=== PATIENT | female | born 1965 | race Caucasian/White ===

== ENCOUNTER 2016-09-09 19:51 | Observation (INO) | payer MEDICAID ==
[~2016-09-09 19:51] MED LIST: ADVAIR 2501 DISK W/D; ADVAIR 2501 DISK W/D IH; ALBUTEROL INH 0.3 ML AERO NEB; ALBUTEROL S2 MG/5 ML PO; ALBUTEROL SULF8.5 G1 IH; ALDACTONE50 MG; ALLEGRA; AMBIEN CR6.25 MG/BO; AMILORIDE HCL5 MG PO; ASPIRIN325 MG; AUGMENTIN 875-11 TAB PO; BACTRIM; BACTRIM DS TABL1 TAB; BACTRIM DS1 TAB PO; BACTROBAN NASAL1 G1; BAYER ASPIRIN325 MG PO; BISACODYL EC5 MG PO; CARTIA XT240 M1 PO; CELLCEPT500 MG; CELLCEPT500 MG PO; CLARITIN10 MG; COLACE100 MG; COMPAZINE10 M PO; COREG6.25 MG; COUMADIN3 MG PO; CPAP; DARVOCET-N 1001 TAB; DIAZEPAM5 M PO; DIGOXIN; DIGOXIN125 MCG; DIOVAN160 MG; DIOVAN40 MG; DIOVAN80 M PO; E-400400 UNIT; FLONASE16 GM; FOSAMAX70 MG; GENESUPP-5001 CAP; HYDROCODONE; IRON1 TA1; IRON1 TA1 PO; KEFLEX500 MG PO; KETOCONAZOLE200 MG; KLONOPIN0.5 MG; KLONOPIN0.5 MG PO; LASIX40 MG; MAG-OXIDE400 MG; MAGNESIUM OXID400 M1 PO; MAGNESIUM-OXID400 MG; MIRALAX17 G1 PO; MUCINEX600 MG; MULTIVITAMIN W/1 TA; MULTIVITAMIN1 TAB PO; NIASPAN500 MG PO; NON-ASPIRIN EX500 M1 PO; OMEPRAZOLE20 M1 PO; OXYCODONE HCL5 MG PO; OXYGEN; OYSCO 500+D TAB1 TAB PO; PRAVACHOL20 MG; PREDNISONE5 MG; PRILOSEC20 MG; PROGRAF0.5 MG; PROGRAF0.5 MG PO; PROGRAF1 M1 PO; PYRIDIUM200 M1 PO; SINGULAIR10 MG PO; TYLENOL325 MG; VALCYTE450 MG; VFEND200 MG; VITAMIN C; VITAMIN D PO; VITAMIN D400 UNIT; WARFARIN; ZETIA10 MG PO; ZITHROMAX250MG Z-PAK PO; ZOFRAN ODT4 MG/UDTAB PO; ZOLOFT25 MG; ZOLOFT25 MG PO; ZOLOFT50 MG PO; ZYRTEC10 M3 PO
[2016-09-09] MEDS ORDERED: FOSAMAX70 M1 (20:09)
[2016-09-09] MEDS ORDERED: ASPIRIN EC81 MG PO (20:09)
[2016-09-09] MEDS ORDERED: TYLENOL WITH C1 EACH PO (20:10)
[2016-09-09] MEDS ORDERED: NORCO 5-325 TA1 EACH PO (20:10)
[2016-09-09] MEDS ORDERED: DIOVAN160 M1 PO (20:12)
[2016-09-09 20:27] LABS: BASO % 0.2 % (0-2); EOS % 3.5 % (0-7); EOSINOPHIL ABSOLUTE COUNT 0.3 tho/cmm (0.0-0.7); HCT-HEMATOCRIT 42.9 % (34.0-49.0); HGB-HEMOGLOBIN 14.7 gm/dl (12.0-15.5); IMMATURE GRANULOCYTES ABSOLUTE 0.03 tho/cmm (0-0.03); IMMATURE GRANULOCYTES PERCENT 0.4 % (0-0.3); LYMPH % 32.3 % (20-45); LYMPH ABSOLUTE COUNT 2.8 tho/cmm (0.8-4.5); MCH (MEAN CORPUSCULAR HGB) 28.1 pg (28.0-32.0); MCHC MEAN CORPUSCULAR HGB CONC 34.3 % (32.0-36.0); MCV (MEAN CELL VOLUME) 81.9 fl (82.0-96.0); MEAN PLATELET VOLUME 9.3 cmc (9.4-12.4); MONOCYTE ABSOLUTE COUNT 0.4 tho/cmm (0.0-1.2); NEUTROPHILS % 58.6 % (40-80); PLATELET COUNT 284 tho/cmm (150-450); RED BLOOD COUNT 5.24 mil/cmm (4.00-5.20); RED CELL DISTRIBUTION WIDTH 13.6 % (12.4-16.4); WHITE BLOOD COUNT 8.5 tho/cmm (4.0-10.0)
[2016-09-09 20:29] LABS: INR 0.9 INR (0.9-1.1); PROTHROMBIN TIME 10.1 SECONDS (9.0-13.6)
[2016-09-09 20:41] LABS: ALB/GLOB RATIO 0.9 (0.8-2.0); ALKALINE PHOSPHATASE 80 U/L (33-138); ALT/SGPT 30 U/L (12-78); BILIRUBIN,TOTAL 0.4 mg/dl (0-1.5); BLOOD UREA NITROGEN 8 mg/dl (6-24); CALCIUM 9.4 mg/dl (8.5-10.5); CARBON DIOXIDE-VENOUS 24 mmol/L (22-32); CHLORIDE 105 mmol/l (96-110); CREATININE 0.61 mg/dl (0.50-1.10); GLUCOSE 118 mg/dL (70-110); LIPASE 211 U/L (73-393); SODIUM 140 mmol/L (135-145); eGFR VALUE FOR BLACK >90 mL/Min
[2016-09-09 20:56] LABS: ANION GAP 14 mmol/L (0-20); AST/SGOT 33 U/L (10-40); POTASSIUM 3.3 mmol/L (3.7-5.1)
[2016-09-10] MEDS ORDERED: AYR SALINE NASA14 GM (00:08)
[2016-09-10] MEDS ORDERED: SINUS RINSE ST1 EACH (00:09)
[2017-01-06] MEDS ORDERED: AMOXICILLIN PO (18:41)
[2017-01-06] MEDS ORDERED: NORCO 7.5-3251 EACH PO (20:42)
[2017-01-06] MEDS ORDERED: KEFLEX500 M4 PO (20:42)
== END 2016-09-10 11:40 ==
LOC: EDMED 19:51 → EMR2 23:28 → CAR1 23:29
PROVIDERS: Emergency Medicine; Nurse Practitioner Family; ADMIT Internal Medicine Cardiovascular Disease
DX: R07.89 Other chest pain (principal); I08.1 Rheumatic disorders of both mitral and tricuspid valves; I10 Essential (primary) hypertension; I45.10 Unspecified right bundle-branch block; G47.33 Obstructive sleep apnea (adult) (pediatric); J32.9 Chronic sinusitis, unspecified; Z94.1 Heart transplant status; Z90.710 Acquired absence of both cervix and uterus; Z96.642 Presence of left artificial hip joint; Z79.82 Long term (current) use of aspirin; Z79.899 Other long term (current) drug therapy
CPT/HCPCS: G0378; J2270; J7517